=== PATIENT | female | born 1990 | race Two or more races ===

== ENCOUNTER 2019-07-03 21:10 | Emergency (ER) | payer SELFPAY ==
[~2019-07-03] VITALS: Ht 160 cm; Wt 79.4 kg
[2019-07-03 21:28] VITALS: Ht 160 cm; Wt 79.4 kg
[2019-07-04 00:23] VITALS: BP 118/71
== END 2019-07-04 00:23 | disposition home or self-care (01) ==
LOC: EDSEX 21:10 → ED 21:10
DX: S93.602A Unspecified sprain of left foot, initial encounter (principal); S93.401A Sprain of unspecified ligament of right ankle, initial encounter; S50.02XA Contusion of left elbow, initial encounter; W17.89XA Other fall from one level to another, initial encounter; Y93.89 Activity, other specified; Y92.89 Other specified places as the place of occurrence of the external cause; Y99.8 Other external cause status